=== PATIENT | female | born 1990 | race Caucasian/White ===

== ENCOUNTER 2017-03-01 15:00 | Outpatient (RCR) | payer OTHER, MEDICAID, SELFPAY ==
[2017-02-15 14:40] VITALS: BP 136/74; PULSE 94; RESP 16; TEMP 37; BMI 39.4
--- NOTE | 2017-02-16 15:52 | PCM.WC.HP ---
(1) Cellulitis of right lower leg Status: Acute Current Visit: Yes Code(s): L03.115 - Cellulitis of right lower limb (2) Excoriation of right lower leg Status: Acute Current Visit: Yes Qualifiers: Encounter type: initial encounter Qualified Code(s): S80.811A - Abrasion, right lower leg, initial encounter Code(s): S80.811A - Abrasion, right lower leg, initial encounter (3) Autism Status: Acute Current Visit: Yes Code(s): F84.0 - Autistic disorder (4) Chronic pruritus Status: Acute Current Visit: Yes Code(s): L29.9 - Pruritus, unspecified (5) History of Asperger's syndrome Status: Acute Current Visit: Yes Code(s): Z86.59 - Personal history of other mental and behavioral disorders History of Present Illness Date of Service: 02/16/17 Chief Complaint: wound on right leg History of Wound: This is a 26-year-old white female who presents to the wound care center today with complaints of a wound on her right leg. She has a past medical history as described above and her autism complicates her overall plan of care. The patient's mother is the main caregiver and states that the wound began on her right lower extremity after she was constantly picking at her leg due to her itching and anxiety. They have currently been using Neosporin and peroxide on the site and then wrapping with Kerlix. She saw her PCP who prescribed mupirocin cream and placed her on 2 rounds of antibiotics, she is unsure what the first round of antibiotics are but is currently completing Bactrim DS. Caregiver states that there is clear yellow drainage from the multiple open areas and that there is redness surrounding the excoriation. Caregiver is concerned because the patient is noncompliant with treatment and takes off the dressings and continues to scratch at the affected extremity. She does state that she is taking Atarax which was ordered by her PCP for the itching. The patient denies any pain at the site. Patient and caregiver denies any other alleviating or aggravating symptoms. Per caregiver, otherwise negative review of systems. Past Medical History Surgical History: no surgical history Allergies/Adverse Reactions: Allergies No Known Allergies Allergy (Verified 12/21/15 20:08) Home Medications: Ambulatory Orders Medication Instructions Recorded Risperidone [Risperdal] 3 mg PO QHS 10/08/14 Propranolol HCl [Inderal (Beta 20 mg PO BID 12/23/13 Seema)] Sertraline HCl [Zoloft] 25 mg PO DAILY 12/23/13 Hydrocodone/Acetaminophen [Vicodin 1 - 2 tablet PO Q4H PRN PRN #30 12/30/13 5-300 mg Tablet] tablet BusPIRone [Buspar] 10 mg PO DAILY 12/21/15 Nitrofurantoin Macrocrystals 100 mg PO Q12 #9 capsule 12/21/15 [Macrobid] Lives: With Family Smoking Status: Never smoker Tobacco Use: Non-smoker Alcohol: None Drugs: None Review of Systems Constitutional: Denies: Chills, Fever, Weight Change Eyes: Denies: Pain, Vision Change HEENT: Denies: Difficulty Hearing, Difficulty Swallowing, Sinus Congestion Cardiovascular: Denies: Chest Pain, Palpitations Respiratory: Denies: Cough, Shortness of Breath Gastrointestinal: Denies: Diarrhea, Nausea, Vomiting Genitourinary: Denies: Dysuria, Hematuria Skin: Reports: Pruritis, Wounds Psychiatric: Reports: Anxiety Endocrine: Denies: Heat/ Cold Intolerance, Polydipsia, Polyuria Hematologic/ Lymphatic: Denies: Easy Bruising, Easy Bleeding - Physical Exam Vital Signs Temp Pulse Resp BP 98.6 F 94 16 136/74 H 02/15/17 14:40 02/15/17 14:40 02/15/17 14:40 02/15/17 14:40 General: Alert, Cooperative, No apparent distress HEENT: PERRLA, EOMI Oral: Moist Mucosa Neck: Supple, No JVD, Negative Carotid Bruits Lungs: Clear to auscultation Cardiovascular: Regular rate, Regular Rhythm Abdomen: Soft, Non Tender Extremities: No edema, Capillary Refill Less than 3 Seconds Skin: Ulcer/ Wound - Left lower extremity multiple areas of healed over scratch balderas present, right lower extremity excoriation and cellulitis present on both anterior and posterior lower leg does not extend past the knee, area is weeping of serous discharge but otherwise no purulent discharge present, during exam patient is actively scratching right lower extremity. Erythema is surrounding that area of excoriation by approximately 1 cm, no warmth noted., Excoriated Wound Measurements and Assessment WC - Nurse 1 - General Ulcer Measurement Start: 02/15/17 14:40 Freq: Status: Active Protocol: Activity Type Activity Date Activity User E-Sign Co-Sign Detail Recorded Client Recorded Date Recorded By Document 02/15/17 14:40 MW [id number] 02/15/17 15:04 MW 02/15/17 14:40 Wound Center Nurse 1 [Ulcer Assessment Protocol: WC.WD.LOC] #1 RIGHT STEWARD EXCORIATION -Combined with other wound No -Current Size (cm) - Length 20.0 -Current Size (cm) - Width 9.5 -Current Size (cm) - Depth 0.1 -Total Square Cm 190.00 -Date of Last Picture (Recall this 02/15/17 field) -Photo Taken Yes -Epithelialization None Present -Tunneling No -Undermining/Tunneling No -Circular Undermining No -Exudate Amt Small (1-33%) -Exudate Type Serosanguineous -Wound Margin Flat & Intact -Granulation Amt Medium (34-66%) -Granulation Quality Red -Slough/Fibrin Yes -Necrosis Amt Small (1-33%) -Necrotic Tissue Type Adherent Slough -Structure Exposed N/A -Texture (Clara-wound Skin Appearance) Assessed Excoriation Friable Localized Edema -Moisture (Clara-wound Skin Appearance Assessed ) Weeping Dry/Scaly -Color (Clara-wound Skin Appearance) Assessed Rubor -Temperature (Clara-wound Skin No Abnormality Appearance) (Pt Warm) -Tenderness on Palpation (Clara-wound Yes Skin Appearance) -Ulcer Cleansing Rinsed/ Irrigated with Saline -Foul Odor after Cleansing No [Edema Assessment] -Lower Limb Edema Present Yes -Right Calf (cm) 42.5 -Right Ankle (cm) 25.2 -Left Calf (cm) 43.6 -Left Ankle (cm) 26.0 - Nurse 2 - General Ulcer CM Notes Start: 02/15/17 14:40 Freq: Status: Active Protocol: Activity Type Activity Date Activity User E-Sign Co-Sign Detail Recorded Client Recorded Date Recorded By Document 02/15/17 15:30 DV [id number] 02/15/17 17:57 DV 02/15/17 15:30 Wound Center Nurse 2 [Procedure/Treatment] #1 RIGHT STEWARD EXCORIATION -Time 17:57 -Correct Patient Yes -Correct Side, Site, Position Yes -Correct Procedure Yes -Procedure Performed No [See Physician Procedure note for Specifics] Pain Scale: 0-10 Numeric [Pain] -Is Patient Pain Free? Yes Musculoskeletal: No Tenderness to Palpation of Joints or Extremities Psych/Mental Status: Agitated, Anxious, Impulsive, Irrational Behavior Debridement Note Post-Debridement Measurements/Treatment WC - Nurse 2 - General Ulcer CM Notes Start: 02/15/17 14:40 Freq: Status: Active Protocol: Activity Type Activity Date Activity User E-Sign Co-Sign Detail Recorded Client Recorded Date Recorded By Document 02/15/17 15:30 DV [id number] 02/15/17 17:57 DV 02/15/17 15:30 Wound Center Nurse 2 #1 RIGHT STEWARD EXCORIATION -Time 17:57 -Correct Patient Yes -Correct Side, Site, Position Yes -Correct Procedure Yes -Procedure Performed No Pain Scale: 0-10 Numeric Is Patient Pain Free? Yes No debridement was completed today Assessment/Plan Active Problems Cellulitis of right lower leg (Acute) Excoriation of right lower leg (Acute) Autism (Acute) Chronic pruritus (Acute) History of Asperger's syndrome (Acute) Plan: The patient and caregiver was updated on the plan of care today after being evaluated at the wound care center. She does have cellulitis with excoriation present of the right lower extremity. Her autism and anxiety with chronic pruritus overall complicates her plan of care. Instructed caregiver and patient that she needs to stop itching the affected extremity. On physical exam, the patient's fingernails were very long. Educated the caregiver to shorten the fingernails by trimming them down. Also educated caregiver not to use Neosporin and peroxide anymore. No debridement was performed today. And an Unna boot was applied and status of wound will be reevaluated next week. Instructed to continue with the antibiotics as the cellulitis is localized at this time. Depending on the progression of the wound, may consider ordering blood work at next visit. No indication for hospital admission at this time. Wound culture anaerobic and aerobic collected and pending. Discussed importance of following up with psychiatry and PCP regarding her anxiety and chronic itching, chronic pruritus most likely secondary to psychiatric condition. This note was generated with [employer] software. It may contain incorrect words, spelling, and punctuation that were not noted in checking the note before signing.
[2017-02-19 11:01] VITALS: BP 121/79; PULSE 85; RESP 16; TEMP 36.2; BMI 39.4
[2017-02-22 14:52] VITALS: BP 121/71; PULSE 83; RESP 16; TEMP 36.6; BMI 39.4
--- NOTE | 2017-02-22 17:41 | PCM.WC.PN ---
(1) Cellulitis of right lower leg Status: Acute Current Visit: Yes Code(s): L03.115 - Cellulitis of right lower limb (2) Excoriation of right lower leg Status: Acute Current Visit: Yes Qualifiers: Encounter type: initial encounter Qualified Code(s): S80.811A - Abrasion, right lower leg, initial encounter Code(s): S80.811A - Abrasion, right lower leg, initial encounter (3) Autism Status: Acute Current Visit: Yes Code(s): F84.0 - Autistic disorder (4) Chronic pruritus Status: Acute Current Visit: Yes Code(s): L29.9 - Pruritus, unspecified (5) History of Asperger's syndrome Status: Acute Current Visit: Yes Code(s): Z86.59 - Personal history of other mental and behavioral disorders Type of Wound Date of Service: 02/22/17 Chief Complaint: wound on right leg History of Wound: This is a 26-year-old white female who presents to the wound care center today with complaints of a wound on her right leg. She has a past medical history as described above and her autism complicates her overall plan of care. The patient's mother is the main caregiver and states that the wound began on her right lower extremity after she was constantly picking at her leg due to her itching and anxiety. They have currently been using Neosporin and peroxide on the site and then wrapping with Kerlix. She saw her PCP who prescribed mupirocin cream and placed her on 2 rounds of antibiotics, she is unsure what the first round of antibiotics are but is currently completing Bactrim DS. Caregiver states that there is clear yellow drainage from the multiple open areas and that there is redness surrounding the excoriation. Caregiver is concerned because the patient is noncompliant with treatment and takes off the dressings and continues to scratch at the affected extremity. She does state that she is taking Atarax which was ordered by her PCP for the itching. The patient denies any pain at the site. Patient and caregiver denies any other alleviating or aggravating symptoms. Per caregiver, otherwise negative review of systems. Progress of Wound: Stable, dramatic improvement from previous week, negative review of systems, patient continues to have chronic pruritus - Physical Exam Vital Signs Temp Pulse Resp BP 97.8 F 83 16 121/71 H 02/22/17 14:52 01/18/18 14:52 02/22/17 14:52 02/22/17 14:52 General: Alert, No apparent distress Cardiovascular: Regular rate Extremities: No clubbing, No cyanosis, No edema, Capillary Refill Less than 3 Seconds, Peripheral Pulses Normal Skin: - - Cellulitis has completely resolved, excoriation 90% healed, small open areas with bloody drainage present after patient scratch them in exam room. Wound Measurements and Assessment WC - Nurse 1 - General Ulcer Measurement Start: 02/15/17 14:40 Freq: Status: Active Protocol: Activity Type Activity Date Activity User E-Sign Co-Sign Detail Recorded Client Recorded Date Recorded By Document 02/22/17 14:52 MW [id number] 02/22/17 15:03 MW 02/22/17 14:52 Wound Center Nurse 1 [Ulcer Assessment Protocol: WC.WD.LOC] #1 RIGHT STEWARD EXCORIATION -Combined with other wound No -Current Size (cm) - Length 12.5 -Current Size (cm) - Width 14.0 -Current Size (cm) - Depth 0.1 -Total Square Cm 175.00 -Photo Taken No -Epithelialization Small 1-33% -Tunneling No -Undermining/Tunneling No -Circular Undermining No -Exudate Amt None Present (0 %) -Granulation Amt Small (1-33%) -Granulation Quality [place] Red -Necrosis Amt Medium (34-66%) -Necrotic Tissue Type Adherent Slough -Structure Exposed None/Limited to Skin Breakdown -Texture (Clara-wound Skin Appearance) Assessed Excoriation -Moisture (Clara-wound Skin Appearance Assessed ) Dry/Scaly -Color (Clara-wound Skin Appearance) Assessed Rubor -Temperature (Clara-wound Skin No Abnormality Appearance) (Pt Warm) -Tenderness on Palpation (Clara-wound No Skin Appearance) -Ulcer Cleansing SOAP AND WATER -Foul Odor after Cleansing No [Edema Assessment] -Lower Limb Edema Present Yes -Right Calf (cm) 41.6 -Right Ankle (cm) 24.0 Musculoskeletal: No Tenderness to Palpation of Joints or Extremities Neurological: Cranial nerves II-XII grossly intact Psych/Mental Status: Anxious, Impulsive Debridement Note Post-Debridement Measurements/Treatment WC - Nurse 2 - General Ulcer CM Notes Start: 02/15/17 14:40 Freq: Status: Active Protocol: Activity Type Activity Date Activity User E-Sign Co-Sign Detail Recorded Client Recorded Date Recorded By Document 02/15/17 15:30 DV [id number] 02/15/17 17:57 DV 02/15/17 15:30 Wound Center Nurse 2 #1 RIGHT STEWARD EXCORIATION -Time 17:57 -Correct Patient Yes -Correct Side, Site, Position Yes -Correct Procedure Yes -Procedure Performed No Pain Scale: 0-10 Numeric Is Patient Pain Free? Yes No debridement was completed today Assessment/Plan Active Problems Cellulitis of right lower leg (Acute) Excoriation of right lower leg (Acute) Autism (Acute) Chronic pruritus (Acute) History of Asperger's syndrome (Acute) Plan: The patient and caregiver was updated on the plan of care today after being evaluated at the wound care center. She does have cellulitis with excoriation present of the right lower extremity, which has drastically improved with the intervention of the Unna boot. Her autism and anxiety with chronic pruritus overall complicates her plan of care. Instructed caregiver and patient that she needs to stop itching the affected extremity. Educated the caregiver to keep the fingernails short to prevent reopening of excoriated area, also recommended following up with PCP in psychologist for chronic pruritus. No debridement was performed today and an Unna boot was applied and status of wound will be reevaluated next week. She has completed a course of antibiotics and cellulitis has resolved. No blood work indicated at this time. Wound culture anaerobic and aerobic collected at last visit demonstrated no growth. Discussed importance of following up with psychiatry and PCP regarding her anxiety and chronic itching, chronic pruritus most likely secondary to psychiatric condition. This note was generated with [employer] dictation software. It may contain incorrect words, spelling, and punctuation that were not noted in checking the note before signing. Code Visit Office Visits / Consults: [id number] OV L3 Est
[2017-02-26 11:23] VITALS: BP 113/67; PULSE 79; RESP 20; TEMP 36.7; BMI 39.4
[2017-03-01 15:25] VITALS: BP 118/71; PULSE 84; RESP 18; TEMP 36.5; BMI 39.4
--- NOTE | 2017-03-01 18:36 | PCM.WC.PN ---
(1) Cellulitis of right lower leg Status: Acute Current Visit: Yes Code(s): L03.115 - Cellulitis of right lower limb (2) Excoriation of right lower leg Status: Acute Current Visit: Yes Qualifiers: Encounter type: initial encounter Qualified Code(s): S80.811A - Abrasion, right lower leg, initial encounter Code(s): S80.811A - Abrasion, right lower leg, initial encounter (3) Autism Status: Acute Current Visit: Yes Code(s): F84.0 - Autistic disorder (4) Chronic pruritus Status: Acute Current Visit: Yes Code(s): L29.9 - Pruritus, unspecified (5) History of Asperger's syndrome Status: Acute Current Visit: Yes Code(s): Z86.59 - Personal history of other mental and behavioral disorders Type of Wound Date of Service: 03/01/17 Chief Complaint: wound on right leg History of Wound: This is a 26-year-old white female who presents to the wound care center today with complaints of a wound on her right leg. She has a past medical history as described above and her autism complicates her overall plan of care. The patient's mother is the main caregiver and states that the wound began on her right lower extremity after she was constantly picking at her leg due to her itching and anxiety. They have currently been using Neosporin and peroxide on the site and then wrapping with Kerlix. She saw her PCP who prescribed mupirocin cream and placed her on 2 rounds of antibiotics, she is unsure what the first round of antibiotics are but is currently completing Bactrim DS. Caregiver states that there is clear yellow drainage from the multiple open areas and that there is redness surrounding the excoriation. Caregiver is concerned because the patient is noncompliant with treatment and takes off the dressings and continues to scratch at the affected extremity. She does state that she is taking Atarax which was ordered by her PCP for the itching. The patient denies any pain at the site. Patient and caregiver denies any other alleviating or aggravating symptoms. Per caregiver, otherwise negative review of systems. Progress of Wound: Stable, improvement from previous week, negative review of systems, patient continues to have chronic pruritus, during exam in office patient unintentionally scratched open multiple sites right lower extremity. - Physical Exam Vital Signs Temp Pulse Resp BP 97.7 F L 84 18 118/71 03/01/17 15:25 03/01/17 15:25 03/01/17 15:25 03/01/17 15:25 General: Alert, Non-Cooperative HEENT: Atraumatic, Normocephalic Lungs: Clear to auscultation Cardiovascular: Regular rate Extremities: No clubbing, No cyanosis, No edema, - - long fingernails B/L Skin: Excoriated - Initially, the patient's excoriation was almost entirely healed, however during exam patient became anxious and scratched open multiple sites over her right lower extremity previous excoriation which reopen some of the healed areas, sites were acutely bleeding which was controlled with pressure. Wound Measurements and Assessment WC - Nurse 1 - General Ulcer Measurement Start: 02/15/17 14:40 Freq: Status: Active Protocol: Activity Type Activity Date Activity User E-Sign Co-Sign Detail Recorded Client Recorded Date Recorded By Document 03/01/17 15:25 DL [id number] 03/01/17 15:34 DL 03/01/17 15:25 Wound Center Nurse 1 [Ulcer Assessment Protocol: .WD.LOC] #1 RIGHT STEWARD EXCORIATION -Current Size (cm) - Length 0.1 -Current Size (cm) - Width 0.1 -Current Size (cm) - Depth 0.1 -Total Square Cm 0.01 -Photo Taken No -Exudate Amt None Present (0 %) -Wound Margin Flat & Intact -Granulation Amt Large (67-100%) -Granulation Quality [place] -Necrotic Tissue Type Adherent Slough -Structure Exposed N/A -Texture (Clara-wound Skin Appearance) Scarring -Moisture (Clara-wound Skin Appearance No Abnormality ) -Color (Clara-wound Skin Appearance) No Abnormality -Ulcer Cleansing Wound Cleanser -Foul Odor after Cleansing No [Edema Assessment] -Right Calf (cm) 41.2 -Right Ankle (cm) 23.2 Neurological: Neuro grossly intact Psych/Mental Status: Agitated, Anxious Debridement Note Post-Debridement Measurements/Treatment WC - Nurse 2 - General Ulcer CM Notes Start: 02/15/17 14:40 Freq: Status: Active Protocol: Activity Type Activity Date Activity User E-Sign Co-Sign Detail Recorded Client Recorded Date Recorded By Document 02/15/17 15:30 DV [id number] 02/15/17 17:57 DV 02/15/17 15:30 Wound Center Nurse 2 #1 RIGHT STEWARD EXCORIATION -Time 17:57 -Correct Patient Yes -Correct Side, Site, Position Yes -Correct Procedure Yes -Procedure Performed No Pain Scale: 0-10 Numeric Is Patient Pain Free? Yes No debridement was completed today Assessment/Plan Active Problems Cellulitis of right lower leg (Acute) Excoriation of right lower leg (Acute) Autism (Acute) Chronic pruritus (Acute) History of Asperger's syndrome (Acute) Assessment: Lower extremity excoriation healed over appropriately, however during exam, patient became anxious and scratched open multiple sites of her excoriation which were previously healed. This reopening a few small areas acutely. Plan: The patient and caregiver was updated on the plan of care today after being evaluated at the wound care center. She did have cellulitis with excoriation present of the right lower extremity, which has resolved with the intervention of the Unna boot. Her autism and anxiety with chronic pruritus overall complicates her plan of care. Instructed caregiver and patient that she needs to stop itching the affected extremity. Educated the caregiver to keep the fingernails short to prevent reopening of excoriated area, also recommended following up with PCP and psychologist for chronic pruritus. No debridement was performed today and an Unna boot was applied and status of wound will be reevaluated next week. She has completed a course of antibiotics and cellulitis has resolved. No blood work indicated at this time. Wound culture anaerobic and aerobic collected at last visit demonstrated no growth. Discussed importance of following up with psychiatry and PCP regarding her anxiety and chronic itching, chronic pruritus most likely secondary to psychiatric condition. Also discussed with patient's mother as she states that patient will chronically at different areas of her body especially her lower extremities that she may need her psychiatric medications adjusted and to follow-up with psychiatrist regarding this. Instructed mother again on the importance of keeping patient's fingernails trimmed and filed down. Did instruct mother to greens picker [id number] compression stockings as this may be a good barrier to decrease patient from scratching her lower extremities. Dermatology referral at next visit if not entirely healed. This note was generated with [employer] software. It may contain incorrect words, spelling, and punctuation that were not noted in checking the note before signing. Code Visit Office Visits / Consults: [id number] OV L3 Est
--- NOTE | 2017-03-02 09:45 | PN.PCM_ITS ---
(1) Cellulitis of right lower leg Status: Acute Current Visit: Yes Code(s): L03.115 - Cellulitis of right lower limb (2) Excoriation of right lower leg Status: Acute Current Visit: Yes Qualifiers: Encounter type: initial encounter Qualified Code(s): S80.811A - Abrasion, right lower leg, initial encounter Code(s): S80.811A - Abrasion, right lower leg, initial encounter (3) Autism Status: Acute Current Visit: Yes Code(s): F84.0 - Autistic disorder (4) Chronic pruritus Status: Acute Current Visit: Yes Code(s): L29.9 - Pruritus, unspecified (5) History of Asperger's syndrome Status: Acute Current Visit: Yes Code(s): Z86.59 - Personal history of other mental and behavioral disorders Type of Wound Date of Service: 03/01/17 Chief Complaint: wound on right leg History of Wound: This is a 26-year-old white female who presents to the wound care center today with complaints of a wound on her right leg. She has a past medical history as described above and her autism complicates her overall plan of care. The patient's mother is the main caregiver and states that the wound began on her right lower extremity after she was constantly picking at her leg due to her itching and anxiety. They have currently been using Neosporin and peroxide on the site and then wrapping with Kerlix. She saw her PCP who prescribed mupirocin cream and placed her on 2 rounds of antibiotics, she is unsure what the first round of antibiotics are but is currently completing Bactrim DS. Caregiver states that there is clear yellow drainage from the multiple open areas and that there is redness surrounding the excoriation. Caregiver is concerned because the patient is noncompliant with treatment and takes off the dressings and continues to scratch at the affected extremity. She does state that she is taking Atarax which was ordered by her PCP for the itching. The patient denies any pain at the site. Patient and caregiver denies any other alleviating or aggravating symptoms. Per caregiver, otherwise negative review of systems. Progress of Wound: Stable, improvement from previous week, negative review of systems, patient continues to have chronic pruritus, during exam in office patient unintentionally scratched open multiple sites right lower extremity. - Physical Exam Vital Signs Temp Pulse Resp BP 97.7 F L 84 18 118/71 03/01/17 15:25 03/01/17 15:25 03/01/17 15:25 03/01/17 15:25 General: Alert, Non-Cooperative HEENT: Atraumatic, Normocephalic Lungs: Clear to auscultation Cardiovascular: Regular rate Extremities: No clubbing, No cyanosis, No edema, - - long fingernails B/L Skin: Excoriated - Initially, the patient's excoriation was almost entirely healed, however during exam patient became anxious and scratched open multiple sites over her right lower extremity previous excoriation which reopen some of the healed areas, sites were acutely bleeding which was controlled with pressure. Wound Measurements and Assessment WC - Nurse 1 - General Ulcer Measurement Start: 02/15/17 14:40 Freq: Status: Active Protocol: Activity Type Activity Date Activity User E-Sign Co-Sign Detail Recorded Client Recorded Date Recorded By Document 03/01/17 15:25 DL [id number] 03/01/17 15:34 DL 03/01/17 15:25 Wound Center Nurse 1 [Ulcer Assessment Protocol: .WD.LOC] #1 RIGHT STEWARD EXCORIATION -Current Size (cm) - Length 0.1 -Current Size (cm) - Width 0.1 -Current Size (cm) - Depth 0.1 -Total Square Cm 0.01 -Photo Taken No -Exudate Amt None Present (0 %) -Wound Margin Flat & Intact -Granulation Amt Large (67-100%) -Granulation Quality [place] -Necrotic Tissue Type Adherent Slough -Structure Exposed N/A -Texture (Clara-wound Skin Appearance) Scarring -Moisture (Clara-wound Skin Appearance No Abnormality ) -Color (Clara-wound Skin Appearance) No Abnormality -Ulcer Cleansing Wound Cleanser -Foul Odor after Cleansing No [Edema Assessment] -Right Calf (cm) 41.2 -Right Ankle (cm) 23.2 Neurological: Neuro grossly intact Psych/Mental Status: Agitated, Anxious Debridement Note Post-Debridement Measurements/Treatment WC - Nurse 2 - General Ulcer CM Notes Start: 02/15/17 14:40 Freq: Status: Active Protocol: Activity Type Activity Date Activity User E-Sign Co-Sign Detail Recorded Client Recorded Date Recorded By Document 02/15/17 15:30 DV [id number] 02/15/17 17:57 DV 02/15/17 15:30 Wound Center Nurse 2 #1 RIGHT STEWARD EXCORIATION -Time 17:57 -Correct Patient Yes -Correct Side, Site, Position Yes -Correct Procedure Yes -Procedure Performed No Pain Scale: 0-10 Numeric Is Patient Pain Free? Yes No debridement was completed today Assessment/Plan Active Problems Cellulitis of right lower leg (Acute) Excoriation of right lower leg (Acute) Autism (Acute) Chronic pruritus (Acute) History of Asperger's syndrome (Acute) Assessment: Lower extremity excoriation healed over appropriately, however during exam, patient became anxious and scratched open multiple sites of her excoriation which were previously healed. This reopening a few small areas acutely. Plan: The patient and caregiver was updated on the plan of care today after being evaluated at the wound care center. She did have cellulitis with excoriation present of the right lower extremity, which has resolved with the intervention of the Unna boot. Her autism and anxiety with chronic pruritus overall complicates her plan of care. Instructed caregiver and patient that she needs to stop itching the affected extremity. Educated the caregiver to keep the fingernails short to prevent reopening of excoriated area, also recommended following up with PCP and psychologist for chronic pruritus. No debridement was performed today and an Unna boot was applied and status of wound will be reevaluated next week. She has completed a course of antibiotics and cellulitis has resolved. No blood work indicated at this time. Wound culture anaerobic and aerobic collected at last visit demonstrated no growth. Discussed importance of following up with psychiatry and PCP regarding her anxiety and chronic itching, chronic pruritus most likely secondary to psychiatric condition. Also discussed with patient's mother as she states that patient will chronically at different areas of her body especially her lower extremities that she may need her psychiatric medications adjusted and to follow -up with psychiatrist regarding this. Instructed mother again on the importance of keeping patient's fingernails trimmed and filed down. Did instruct mother to picking machine operator helper [id number] compression stockings as this may be a good barrier to decrease patient from scratching her lower extremities. Dermatology referral at next visit if not entirely healed. This note was generated with [employer] software. It may contain incorrect words, spelling, and punctuation that were not noted in checking the note before signing. Code Visit Office Visits / Consults: [id number] OV L3 Est
== END 2017-03-07 23:59 ==
LOC: WC 15:00
PROVIDERS: Family Provider Pediatrics; PCP Pediatrics; Visit Provider Nurse Practitioner Family
DX: S80.811A Abrasion, right lower leg, initial encounter (principal); X58.XXXA Exposure to other specified factors, initial encounter; L29.9 Pruritus, unspecified; F84.0 Autistic disorder; Z86.59 Personal history of other mental and behavioral disorders; L03.115 Cellulitis of right lower limb; Z91.19 Patient's noncompliance with other medical treatment and regimen; Z79.899 Other long term (current) drug therapy
CPT/HCPCS: 29580; 87070; 87075; 87205; 99211; 99212; 99213; 99214; G0463

== ENCOUNTER 2017-03-08 14:37 | Outpatient (RCR) | payer OTHER, MEDICAID, SELFPAY ==
[2017-03-01 15:25] VITALS: BP 118/71
[2017-03-08 01:07] VITALS: PULSE 84; RESP 18; TEMP 36.5
[2017-03-08 14:22] VITALS: BP 115/68; PULSE 74; RESP 16; TEMP 36.6; BMI 39.4
--- NOTE | 2017-03-08 15:30 | PCM.WC.PN ---
(1) Excoriation of right lower leg Status: Acute Current Visit: Yes Qualifiers: Code(s): S80.811A - Abrasion, right lower leg, initial encounter (2) Autism Status: Acute Current Visit: No Code(s): F84.0 - Autistic disorder (3) Cellulitis of right lower leg Status: Acute Current Visit: Yes Code(s): L03.115 - Cellulitis of right lower limb (4) Chronic pruritus Status: Acute Current Visit: Yes Code(s): L29.9 - Pruritus, unspecified (5) History of Asperger's syndrome Status: Acute Current Visit: Yes Code(s): Z86.59 - Personal history of other mental and behavioral disorders Type of Wound Date of Service: 03/08/17 Chief Complaint: wound on right leg History of Wound: This is a 26-year-old white female who presents to the wound care center today with complaints of a wound on her right leg. She has a past medical history as described above and her autism complicates her overall plan of care. The patient's mother is the main caregiver and states that the wound began on her right lower extremity after she was constantly picking at her leg due to her itching and anxiety. They have currently been using Neosporin and peroxide on the site and then wrapping with Kerlix. She saw her PCP who prescribed mupirocin cream and placed her on 2 rounds of antibiotics, she is unsure what the first round of antibiotics are but is currently completing Bactrim DS. Caregiver states that there is clear yellow drainage from the multiple open areas and that there is redness surrounding the excoriation. Caregiver is concerned because the patient is noncompliant with treatment and takes off the dressings and continues to scratch at the affected extremity. She does state that she is taking Atarax which was ordered by her PCP for the itching. The patient denies any pain at the site. Patient and caregiver denies any other alleviating or aggravating symptoms. Per caregiver, otherwise negative review of systems. Progress of Wound: Healed, complete epithelialization noted were prior right lower extremity excoriation was, no signs of infection or cellulitis at this time. The patient otherwise denies any fever, chills, nausea, vomiting, shortness of breath, chest pain or pressure, palpitations, orthopnea, lower extremity edema, syncope or presyncopal episodes. - Physical Exam Vital Signs Temp Pulse Resp BP 98 F 74 16 115/68 03/08/17 14:22 03/08/17 14:22 03/08/17 14:22 03/08/17 14:22 General: Alert, Oriented x3, No apparent distress, Non-Cooperative HEENT: PERRLA, EOMI Lungs: Clear to auscultation Cardiovascular: Regular rate, Regular Rhythm Extremities: No clubbing, No cyanosis, No edema, Capillary Refill Less than 3 Seconds, Peripheral Pulses Normal Skin: - - Small scabbed over areas of prior right lower extremity excoriation present, no signs of inflammation, peripheral pulses intact. Wound Measurements and Assessment WC - Nurse 2 - General Ulcer Notes Start: 03/08/17 14:21 Freq: Status: Active Protocol: Activity Type Activity Date Activity User E-Sign Co-Sign Detail Recorded Client Recorded Date Recorded By Document 03/08/17 14:57 DV [id number] 03/08/17 14:59 DV 03/08/17 14:57 Wound Center Nurse 2 [Procedure/Treatment] #1 RIGHT STEWARD EXCORIATION -Time 14:58 -Correct Patient Yes -Procedure Performed No -Wound/Ulcer Outcome Healed- Epithelialized [See Physician Procedure note for Specifics] Pain Scale: 0-10 Numeric [Pain] -Is Patient Pain Free? Yes Psych/Mental Status: Agitated, Anxious Debridement Note Post-Debridement Measurements/Treatment - Nurse 2 - General Ulcer CM Notes Start: 03/08/17 14:21 Freq: Status: Active Protocol: Activity Type Activity Date Activity User E-Sign Co-Sign Detail Recorded Client Recorded Date Recorded By Document 03/08/17 14:57 DV [id number] 03/08/17 14:59 DV 03/08/17 14:57 Wound Center Nurse 2 #1 RIGHT STEWARD EXCORIATION -Time 14:58 -Correct Patient Yes -Procedure Performed No -Wound/Ulcer Outcome Healed- Epithelialized Pain Scale: 0-10 Numeric Is Patient Pain Free? Yes No debridement was completed today Assessment/Plan Active Problems Cellulitis of right lower leg (Acute) Excoriation of right lower leg (Acute) Chronic pruritus (Acute) History of Asperger's syndrome (Acute) Assessment: Lower extremity excoriation healed over appropriately, Plan: The patient and caregiver was updated on the plan of care today after being evaluated at the wound care center. She did have cellulitis with excoriation present of the right lower extremity, which has resolved with the intervention of the Unna boot. Her autism and anxiety with chronic pruritus overall complicates her plan of care. Instructed caregiver and patient that she needs to stop itching the affected extremity. Educated the caregiver to keep the fingernails short to prevent reopening of excoriated area, also recommended following up with PCP and psychologist for chronic pruritus. She has completed a course of antibiotics and cellulitis has resolved. No blood work indicated at this time. Wound culture anaerobic and aerobic collected demonstrated no growth. Discussed importance of following up with psychiatry and PCP regarding her anxiety and chronic itching, chronic pruritus most likely secondary to psychiatric condition. Also discussed with patient's mother as she states that patient will chronically at different areas of her body especially her lower extremities that she may need her psychiatric medications adjusted and to follow-up with psychiatrist regarding this. Instructed mother again on the importance of keeping patient's fingernails trimmed and filed down. Did instruct mother to crab picker [id number] compression stockings as this may be a good barrier to decrease patient from scratching her lower extremities. Care will be transferred to patient's new primary care provider Dr. Jain and a follow-up appointment was made for her at the PCPs office next week. Discussed with mother how from a wound center standpoint, the cellulitis and excoriation has healed and now she needs managed medically from a psychiatric and primary care standpoint. This note was generated with [employer] dictation software. It may contain incorrect words, spelling, and punctuation that were not noted in checking the note before signing. Code Visit Office Visits / Consults: [id number] OV L3 Est
--- NOTE | 2017-03-09 15:38 | PN.PCM_ITS ---
(1) Excoriation of right lower leg Status: Acute Current Visit: Yes Qualifiers: Code(s): S80.811A - Abrasion, right lower leg, initial encounter (2) Autism Status: Acute Current Visit: No Code(s): F84.0 - Autistic disorder (3) Cellulitis of right lower leg Status: Acute Current Visit: Yes Code(s): L03.115 - Cellulitis of right lower limb (4) Chronic pruritus Status: Acute Current Visit: Yes Code(s): L29.9 - Pruritus, unspecified (5) History of Asperger's syndrome Status: Acute Current Visit: Yes Code(s): Z86.59 - Personal history of other mental and behavioral disorders Type of Wound Date of Service: 03/08/17 Chief Complaint: wound on right leg History of Wound: This is a 26-year-old white female who presents to the wound care center today with complaints of a wound on her right leg. She has a past medical history as described above and her autism complicates her overall plan of care. The patient's mother is the main caregiver and states that the wound began on her right lower extremity after she was constantly picking at her leg due to her itching and anxiety. They have currently been using Neosporin and peroxide on the site and then wrapping with Kerlix. She saw her PCP who prescribed mupirocin cream and placed her on 2 rounds of antibiotics, she is unsure what the first round of antibiotics are but is currently completing Bactrim DS. Caregiver states that there is clear yellow drainage from the multiple open areas and that there is redness surrounding the excoriation. Caregiver is concerned because the patient is noncompliant with treatment and takes off the dressings and continues to scratch at the affected extremity. She does state that she is taking Atarax which was ordered by her PCP for the itching. The patient denies any pain at the site. Patient and caregiver denies any other alleviating or aggravating symptoms. Per caregiver, otherwise negative review of systems. Progress of Wound: Healed, complete epithelialization noted were prior right lower extremity excoriation was, no signs of infection or cellulitis at this time. The patient otherwise denies any fever, chills, nausea, vomiting, shortness of breath, chest pain or pressure, palpitations, orthopnea, lower extremity edema, syncope or presyncopal episodes. - Physical Exam Vital Signs Temp Pulse Resp BP 98 F 74 16 115/68 03/08/17 14:22 03/08/17 14:22 03/08/17 14:22 03/08/17 14:22 General: Alert, Oriented x3, No apparent distress, Non-Cooperative HEENT: PERRLA, EOMI Lungs: Clear to auscultation Cardiovascular: Regular rate, Regular Rhythm Extremities: No clubbing, No cyanosis, No edema, Capillary Refill Less than 3 Seconds, Peripheral Pulses Normal Skin: - - Small scabbed over areas of prior right lower extremity excoriation present, no signs of inflammation, peripheral pulses intact. Wound Measurements and Assessment WC - Nurse 2 - General Ulcer Notes Start: 03/08/17 14:21 Freq: Status: Active Protocol: Activity Type Activity Date Activity User E-Sign Co-Sign Detail Recorded Client Recorded Date Recorded By Document 03/08/17 14:57 DV [id number] 03/08/17 14:59 DV 03/08/17 14:57 Wound Center Nurse 2 [Procedure/Treatment] #1 RIGHT STEWARD EXCORIATION -Time 14:58 -Correct Patient Yes -Procedure Performed No -Wound/Ulcer Outcome Healed- Epithelialized [See Physician Procedure note for Specifics] Pain Scale: 0-10 Numeric [Pain] -Is Patient Pain Free? Yes Psych/Mental Status: Agitated, Anxious Debridement Note Post-Debridement Measurements/Treatment - Nurse 2 - General Ulcer CM Notes Start: 03/08/17 14:21 Freq: Status: Active Protocol: Activity Type Activity Date Activity User E-Sign Co-Sign Detail Recorded Client Recorded Date Recorded By Document 03/08/17 14:57 DV [id number] 03/08/17 14:59 DV 03/08/17 14:57 Wound Center Nurse 2 #1 RIGHT STEWARD EXCORIATION -Time 14:58 -Correct Patient Yes -Procedure Performed No -Wound/Ulcer Outcome Healed- Epithelialized Pain Scale: 0-10 Numeric Is Patient Pain Free? Yes No debridement was completed today Assessment/Plan Active Problems Cellulitis of right lower leg (Acute) Excoriation of right lower leg (Acute) Chronic pruritus (Acute) History of Asperger's syndrome (Acute) Assessment: Lower extremity excoriation healed over appropriately, Plan: The patient and caregiver was updated on the plan of care today after being evaluated at the wound care center. She did have cellulitis with excoriation present of the right lower extremity, which has resolved with the intervention of the Unna boot. Her autism and anxiety with chronic pruritus overall complicates her plan of care. Instructed caregiver and patient that she needs to stop itching the affected extremity. Educated the caregiver to keep the fingernails short to prevent reopening of excoriated area, also recommended following up with PCP and psychologist for chronic pruritus. She has completed a course of antibiotics and cellulitis has resolved. No blood work indicated at this time. Wound culture anaerobic and aerobic collected demonstrated no growth. Discussed importance of following up with psychiatry and PCP regarding her anxiety and chronic itching, chronic pruritus most likely secondary to psychiatric condition. Also discussed with patient's mother as she states that patient will chronically at different areas of her body especially her lower extremities that she may need her psychiatric medications adjusted and to follow-up with psychiatrist regarding this. Instructed mother again on the importance of keeping patient's fingernails trimmed and filed down. Did instruct mother to slate picker [id number] compression stockings as this may be a good barrier to decrease patient from scratching her lower extremities. Care will be transferred to patient's new primary care provider Dr. Jain and a follow-up appointment was made for her at the PCPs office next week. Discussed with mother how from a wound center standpoint, the cellulitis and excoriation has healed and now she needs managed medically from a psychiatric and primary care standpoint. This note was generated with [employer] dictation software. It may contain incorrect words, spelling, and punctuation that were not noted in checking the note before signing. Code Visit Office Visits / Consults: [id number] OV L3 Est
== END 2017-04-04 23:59 ==
LOC: WC 14:37
PROVIDERS: Family Provider Pediatrics; PCP Pediatrics; Visit Provider Nurse Practitioner Family
DX: S80.811A Abrasion, right lower leg, initial encounter (principal); X58.XXXA Exposure to other specified factors, initial encounter; L03.115 Cellulitis of right lower limb; L29.9 Pruritus, unspecified; Z86.59 Personal history of other mental and behavioral disorders; F84.0 Autistic disorder
CPT/HCPCS: 99212; G0463